=== PATIENT | female | born 1950 | race African-American/Black ===

== ENCOUNTER 2020-08-27 15:57 | Emergency (ER) | payer MEDICARE ==
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
--- NOTE | 2020-08-27 19:30 | RADIOLOGY REPORT (SQ) ---
EXAM DESCRIPTION: VENOUS UNILATERAL LOWER IMAGES COMPLETED DATE/TIME: 08/27/2020 6:22 pm REASON FOR STUDY: Left calf pain COMPARISON: None. TECHNIQUE: Dynamic and static ugalde scale and color images acquired of the left leg venous system. Se lected spectral images acquired with additional compression and augmentation maneuvers. The contralat eral common femoral vein and saphenofemoral junction were also imaged. Images stored on PACS. LIMITATIONS: None. FINDINGS: COMMON FEMORAL: Normal phasicity, compression and augmentation. No visualized echogenic ma terial on ugalde scale. No defects on color images. FEMORAL: Normal compression and augmentation. No visualized echogenic material on ugalde scale. No defe cts on color images. POPLITEAL: Normal compression, augmentation. No visualized echogenic material on ugalde scale. No defec ts on color images. CALF VESSELS: Normal compression, augmentation. No visualized echogenic material on ugalde scale. No de fects on color images. GSV and SSV: Normal compression, augmentation. No visualized echogenic material on ugalde scale. No def ects on color images. ANY DEEP VENOUS INSUFFICIENCY: Not evaluated. ANY EVIDENCE OF POPLITEAL CYST: No. OTHER: No other significant finding. CONTRALATERAL COMMON FEMORAL VEIN AND SAPHENOFEMORAL JUNCTION: Normal phasicity, compression and augmentation. No visualized echogenic material on ugalde scale. No de fects on color images. IMPRESSION: NO EVIDENCE OF DVT OR SVT IN THE LEFT LEG. TECHNICAL DOCUMENTATION: JOB ID: [id number] [employer]- All Rights Reserved Reading location - IP/workstation name: [email or web address]
[2020-08-27] MEDS ORDERED: HYDROCODONE/ACETAMINOPHEN 5-325 MG (6 TAB/ER DISP) PO PRN (21:33)
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
[2020-08-27 21:48] VITALS: BP 132/80
== END 2020-08-27 21:50 | disposition home or self-care (01) ==
LOC: ER 15:57
DX: M25.562 Pain in left knee (principal)
CPT/HCPCS: 99285; 93971; A9270